=== PATIENT | male | born 1980 | race Caucasian/White ===

== ENCOUNTER 2022-11-06 08:37 | Outpatient (CLI) | payer OTHER, SELFPAY ==
[2022-11-06 13:47] LABS: Chloride* 107 mmol/L (96-114); Potassium* 4.6 mmol/L (3.6-5.1); Sodium* 139 mmol/L (135-149)
[2022-11-06 13:49] LABS: Cholesterol* 260 mg/dL (90-199)
[2022-11-06 13:50] LABS: Blood Urea Nitrogen* 19 mg/dL (5-24); Carbon Dioxide* 24 mmol/L (20-32); Estimated Glomerular Filt Rate 95 ml/min; Glucose* 95 mg/dL (60-115); Triglycerides* 138 mg/dL (40-149)
[2022-11-06 13:51] LABS: Calcium* 9.1 mg/dL (8.4-10.6); HDL Cholesterol* 40 mg/dL (>=40); LDL Cholesterol Calculated 192 mg/dL (<100)
== END 2022-11-06 08:38 | disposition home or self-care (01) ==
PROVIDERS: PCP Family Medicine; Visit Provider Family Medicine
DX: Z00.00 Encounter for general adult medical examination without abnormal findings (principal); E78.5 Hyperlipidemia, unspecified
CPT/HCPCS: 80048; 80061